=== PATIENT | male | born 1990 ===

== ENCOUNTER 2017-09-21 07:50 | Inpatient (IN) ==
[2017-09-21] MEDS ORDERED: LACTATED RINGERS 1,000 ML IV STA (07:58)
[2017-09-21] MEDS ORDERED: DIPHTHERIA/TETANUS ADULT VACCINE 0.5 ML VIAL IM ONE (07:58)
[2017-09-21] MEDS ORDERED: LIDOCAINE 1%/EPI INJ 20 ML VIAL ONE (08:02)
[2017-09-21] MEDS ORDERED: BUPIVACAINE 0.25% 50 ML VIAL ONE (08:02)
[2017-09-21] MEDS ORDERED: ceFAZolin 1,000 MG VIAL ONE (08:07)
[2017-09-21] MEDS ORDERED: DIPH/TET/ACEL PERT BOOSTER VACCINE 0.5 ML VIAL IM ONE (08:08)
[2017-09-21 08:11] LABS: ABG Base Excess -3.8 MMOL/L (-2.5-2.5); ABG HCO3 20.9 MMOL/L (20-26); ABG Oxygen Saturation 99.2 % (95-100); ABG PCO2 37.1 MM HG (35-48); ABG PH 7.369 (7.35-7.45); ABG PO2 284.5 MM HG (80-95); ABG TCO2 22.1 MMOL/L (23-27)
[2017-09-21 08:14] LABS: Basophils # 0.1 10*3/uL (0.0-0.2); Basophils % 0.4 % (0.0-0.8); Eosinophils # 0.2 10*3/uL (0.0-0.87); Eosinophils % 0.9 % (0.00-10.9); Hematocrit 37.8 VOL% (42.0-52.0); Hemoglobin 13.3 GM/DL (14.0-18.0); Immature Granulocytes % 0.9 %; Immature Granulocytes Absolute 0.17 #; Lymphocytes # 1.4 10*3/uL (1.4-4.0); Lymphocytes % 7.5 % (21.2-54.2); Mean Corpuscular HGB Conc 35.2 GM/DL (32-36); Mean Corpuscular Hemoglobin 31 PG (27-34); Mean Corpuscular Volume 89.2 FL (87-102); Mean Platelet Volume 9.1 FL (9.6-12.0); Monocytes # 1.3 10*3/uL (0.11-0.8); Monocytes % 6.8 % (1.7-12.7); Neutrophils # 15.5 10*3/uL (1.4-7.4); Neutrophils % 83.5 % (38.7-73.9); Platelet Count 243 T/CUMM (130-400); Red Blood Count 4.24 MC/CUMM (3.8-5.5); Red Cell Distribution Width 12.5 % (9.3-17.3); White Blood Count 18.6 T/CUMM (4-12)
[2017-09-21 08:35] LABS: Lactic Acid 2.5 MMOL/L (0.4-2.0)
[2017-09-21] MEDS ORDERED: ROCURONIUM 100 MG/10 ML VIAL IV ONE (09:00)
[2017-09-21] MEDS ORDERED: NEOSTIGMINE 10 MG/10 ML VIAL ONE (09:00)
[2017-09-21] MEDS ORDERED: GLYCOPYRROLATE 0.4 MG/2 ML VIAL ONE (09:00)
[2017-09-21] MEDS ORDERED: SUCCINYLCHOLINE 200 MG/10 ML VIAL ONE (09:00)
[2017-09-21] MEDS ORDERED: ONDANSETRON 4 MG/2 ML VIAL ONE (09:00)
[2017-09-21] MEDS ORDERED: PROPOFOL 200 MG/20 ML VIAL IV ONE (09:00)
[2017-09-21] MEDS ORDERED: SEVOFLURANE 1 UNIT/15 MINUTE INH ONE ×2 (09:00→09:51)
[2017-09-21] MEDS ORDERED: PHENYLEPHRINE 1 MG/10 ML SYRINGE IV ONE (09:00)
[2017-09-21] MEDS ORDERED: LIDOCAINE 2% 5 ML VIAL ONE (09:00)
[2017-09-21 09:10] LABS: Alanine Aminotransferase 45 U/L (16-61); Albumin 3.8 G/DL (3.4-5.0); Alkaline Phosphatase 97 U/L (45-117); Amylase 58 U/L (25-115); Aspartate Amino Transferase 34 U/L (0-37); Bilirubin,Total < 0.39 MG/DL (0.2-1.0); Blood Urea Nitrogen 12 MG/DL (7-18); Calcium 8.2 MG/DL (8.5-10.1); Glucose 99 MG/DL (74-106); Osmolality,Calculated 282.1 MOS/KG (273-304); Potassium 4.1 MMOL/L (3.5-5.1); Sodium 142 MMOL/L (136-145); Total Protein 7.1 G/DL (6.4-8.3)
[2017-09-21 09:32] LABS: Barbiturates Screen,Urine Negative (Negative); Benzodiazepines Screen,Urine Negative (Negative); Cannabinoid Screen,Urine Negative (Negative); Opiate Screen,Urine Negative (Negative); Phencyclidine Screen,Urine Negative (Negative)
[2017-09-21] MEDS ORDERED: HYDROmorphone 2 MG/1 ML VIAL IV PRN ×2 (09:33→12:03)
[2017-09-21] MEDS ORDERED: ONDANSETRON 4 MG/2 ML VIAL IV PRN (09:33)
[2017-09-21 09:48] LABS: Apearance,Urine CLEAR (Clear); Bacteria,Urine Occasional /HPF (Few); Bilirubin,Urine Negative (Negative); Blood, Urine Moderate mg/dL (Negative); Glucose,Urine (UA) Negative (Negative); Ketones,Urine Negative (Negative); Nitrite,Urine Negative (Negative); Protein,Urine Negative; RBC,Urine <1 /HPF (0-4); Urine Color Straw (Yellow); Urine Specific Gravity 1.003 (1.001-1.035); Urine Urobilinogen < 2.0 EU/DL (0.2-1.0); WBC,Urine <1 /HPF (0-6)
[2017-09-21] MEDS ORDERED: MIDAZOLAM 2 MG/2 ML VIAL ONE (09:50)
[2017-09-21] MEDS ORDERED: fentaNYL 100 MCG/2 ML VIAL ONE (09:50)
[2017-09-21] MEDS ORDERED: LACTATED RINGERS 1,000 ML IV SCH (10:00)
[2017-09-21] MEDS ORDERED: SODIUM CHLORIDE 0.9% 1,000 ML IV SCH (10:00)
[2017-09-21 10:49] LABS: Hypochromasia 1+; Lymphocytes 4 % (20-55); Macrocytosis 1+; Platelet Estimate Adequate; Segmented Neutrophils 89 % (50-85); Total Cells Counted 100
[2017-09-21 12:26] LABS: INR 1.1; PT Patient Result 11.6 SECS; Partial Thromboplastin Time 30.3 SECS (0-40)
[2017-09-21] MEDS: KETOROLAC 15 MG/1 ML VIAL IV SCH ×3 (13:58→23:41)
[2017-09-21] MEDS: LACTATED RINGERS 1,000 ML IV SCH ×2 (14:00→20:16)
[2017-09-22] MEDS: LACTATED RINGERS 1,000 ML IV SCH ×3 (04:16→21:50)
[2017-09-22] MEDS: ENOXAPARIN 40 MG/0.4 ML SYRINGE SUBCUT SCH (05:52)
[2017-09-22] MEDS: KETOROLAC 15 MG/1 ML VIAL IV SCH ×3 (05:53→18:26)
[2017-09-23] MEDS: KETOROLAC 15 MG/1 ML VIAL IV SCH ×3 (00:17→13:24)
[2017-09-23] MEDS: LACTATED RINGERS 1,000 ML IV SCH ×2 (05:54→13:24)
[2017-09-23] MEDS: ENOXAPARIN 40 MG/0.4 ML SYRINGE SUBCUT SCH (05:56)
[2017-09-23 09:34] LABS: Basophils % 0.5 % (0.0-0.8); Eosinophils # 0.3 10*3/uL (0.0-0.87); Eosinophils % 5.5 % (0.00-10.9); Hemoglobin 10.8 GM/DL (14.0-18.0); Immature Granulocytes % 0.6 %; Immature Granulocytes Absolute 0.04 #; Lymphocytes # 1.9 10*3/uL (1.4-4.0); Lymphocytes % 30.6 % (21.2-54.2); Mean Corpuscular HGB Conc 34.8 GM/DL (32-36); Mean Corpuscular Hemoglobin 31 PG (27-34); Mean Corpuscular Volume 89.6 FL (87-102); Mean Platelet Volume 9.9 FL (9.6-12.0); Monocytes # 0.5 10*3/uL (0.11-0.8); Monocytes % 8.4 % (1.7-12.7); Neutrophils # 3.4 10*3/uL (1.4-7.4); Neutrophils % 54.4 % (38.7-73.9); Platelet Count 185 T/CUMM (130-400); Red Blood Count 3.46 MC/CUMM (3.8-5.5); Red Cell Distribution Width 12.2 % (9.3-17.3); White Blood Count 6.2 T/CUMM (4-12)
[2017-09-23 12:11] VITALS: BP 112/69
== END 2017-09-23 15:10 | disposition home or self-care (01) | DRG 572 ==
LOC: N.ED 07:50 → N.4E 08:15 → N.EDINP 08:53 → N.4E 11:48
PROVIDERS: ADMIT Surgery; ATTEND Surgery